=== PATIENT | female | born 1950 | race Caucasian/White ===

== ENCOUNTER → 2016-08-21 | Outpatient (CLI) | payer MEDICARE ==
[~2016-08-21] MED LIST: ARIM1TAB4 PO; LISI25TA PO; MONT10TA2 PO; OYSCTAB PO; SENN8.6C
--- NOTE | 2016-08-21 15:25 | REPMRS ---
Patient History The patient states she had a clinical breast exam in 12/05.Patient has history of breast cancer at age 55. Family history of unknown cancer in sister at age 67 and breast cancer in mother at age 80. Digital Mammo Screening Bilat: August 21, 2016 - Exam #: [id number] Bilateral CC and MLO view(s) were taken. Technologist: Mackenzie Peralta, Technologist Prior study comparison: August 19, 2015, bilateral digital mammo screening bilat performed at [facility]. August 18, 2014, bilateral digital mammo screening bilat performed at [facility]. August 12, 2013, bilateral digital mammo screening bilat performed at [facility]. FINDINGS: The breast tissue is heterogeneously dense. This may lower the sensitivity of mammography. There is a moderate amount of heterogeneously dense fibroglandular tissue which is fairly symmetric. There are stable post treatment changes in the left breast.There is no interval development of dominant mass, architectural distortion, or clustered microcalcification typical of malignancy. There has been no change in the appearance of the mammogram from the prior studies. ASSESSMENT: BI-RADS/ACR category 1 mammogram. Negative. Recommendation Routine screening mammogram of both breasts in 1 year (for women over age 40). This mammogram was interpreted with the aid of an FDA-approved computer-aided dectection system. Electronically Signed By: Mendez Stapleton MD 08/21/16 8908
== END ==
LOC: M RAD 14:51
PROVIDERS: ATTEND Nurse Practitioner Family
DX: R92.2 Inconclusive mammogram (principal); Z85.3 Personal history of malignant neoplasm of breast; Z80.3 Family history of malignant neoplasm of breast

== ENCOUNTER → 2016-12-11 | Outpatient (CLI) | payer MEDICARE ==
[~2016-12-11] MED LIST changes: +LISI2.5T76 PO; -LISI25TA PO
--- NOTE | 2016-12-11 13:03 | REP ---
Ultrasound of the soft tissues of the neck: The patient has supraclavicular thickness on the left. Ultrasonography in the area of the thickness in the left supraclavicular and infraclavicular areas are evaluated by ultrasound. No focal mass or fluid collection is identified in these areas. There is a lymph node measuring 2.7 x 6.0 x 3.7 mm at the mid level of the neck on the left. This lymph node is normal size. In the left lobe of the thyroid. There are multiple nodules, the largest measuring 11.3 mm. Comparison ultrasound of the neck on the right is performed. There is no nodule or mass. Within the right lobe of the thyroid multiple nodules are identified, the largest measuring 4 mm. Signed by Jameel Epps MD 12/11/2016 12:54 P
== END ==
LOC: M RAD 11:59
PROVIDERS: ATTEND Internal Medicine Medical Oncology
DX: C50.912 Malignant neoplasm of unspecified site of left female breast (principal)

== ENCOUNTER → 2017-01-10 | Outpatient (REF) | payer MEDICARE, BC | LOC: M LAB REF 12:28 | PROVIDERS: ATTEND Nurse Practitioner Adult Health | DX: L81.8 Other specified disorders of pigmentation (principal) ==

== ENCOUNTER → 2017-01-16 | Outpatient (REF) | payer MEDICARE, BC | LOC: M LAB REF 11:27 | PROVIDERS: ATTEND Internal Medicine Endocrinology, Diabetes & Metabolism | DX: E04.2 Nontoxic multinodular goiter (principal) ==

== ENCOUNTER → 2017-08-23 | Outpatient (CLI) | payer MEDICARE | LOC: M RAD 07:32 | DX: Z12.31 Encounter for screening mammogram for malignant neoplasm of breast (principal); R92.8 Other abnormal and inconclusive findings on diagnostic imaging of breast | CPT/HCPCS: 77067 ==

== ENCOUNTER → 2018-08-26 | Outpatient (CLI) | payer MEDICARE ==
[~2018-08-26] MED LIST changes: -ARIM1TAB4 PO; +ARIM1TAB5 PO
--- NOTE | 2018-08-26 10:07 | REPMRS ---
Patient History The patient states she had a clinical breast exam in November 2017.Family history of breast cancer at age 80 in mother, unknown cancer at age 67 in sister. Digital Mammo Screening Bilat: August 26, 2018 - Exam #: [id number] Bilateral CC and MLO view(s) were taken. Technologist: Mackenzie Peralta, Technologist Prior study comparison: August 23, 2017, bilateral digital mammo screening bilat performed at [facility]. August 21, 2016, bilateral digital mammo screening bilat performed at [facility]. August 19, 2015, bilateral digital mammo screening bilat performed at [facility]. FINDINGS: The breast tissue is heterogeneously dense. This may lower the sensitivity of mammography. There are stable post treatment changes in the left breast. There is a moderate amount of heterogeneously dense fibroglandular tissue which is fairly symmetric. There is no interval development of dominant mass, architectural distortion, or clustered microcalcification typical of malignancy. There has been no change in the appearance of the mammogram from the prior studies. 3-D tomosynthesis shows no additional findings. Assessment: BI-RADS/ACR category 2 mammogram. Benign Findings. Recommendation Routine screening mammogram of both breasts in 1 year (for women over age 40). This mammogram was interpreted with the aid of an FDA-approved computer-aided dectection system. Electronically Signed By: Mendez Stapleton MD 08/26/18 1007
== END ==
LOC: M RAD 09:34
PROVIDERS: ATTEND Nurse Practitioner Family
DX: Z12.31 Encounter for screening mammogram for malignant neoplasm of breast (principal)

== ENCOUNTER → 2018-10-07 | Outpatient (REF) | payer MEDICARE, BC | LOC: M SFHCPLAZ 19:32 | PROVIDERS: ATTEND Dermatology | DX: C44.612 Basal cell carcinoma of skin of right upper limb, including shoulder (principal); C44.629 Squamous cell carcinoma of skin of left upper limb, including shoulder; L57.0 Actinic keratosis ==

== ENCOUNTER → 2018-11-19 | Outpatient (REF) | payer MEDICARE, BC | LOC: M SFHCPLAZ 17:27 | PROVIDERS: ATTEND Dermatology | DX: C44.519 Basal cell carcinoma of skin of other part of trunk (principal); L82.1 Other seborrheic keratosis ==

== ENCOUNTER → 2019-09-02 | Outpatient (CLI) | payer MEDICARE ==
[~2019-09-02] MED LIST changes: +LOSA50TA88 PO; -MONT10TA2 PO; +MONT10TA4 PO; +ROSU20TA5 PO
--- NOTE | 2019-09-02 09:27 | REPMRS ---
Patient History The patient states she had a clinical breast exam in 09/2018. Patient has history of skin cancer at age 68, has history of cancer in the left breast at age 55, had previous chest radiation therapy at age 55, and has history of cancer in the left breast at age 54. Family history of breast cancer at age 80 in mother. Malignant lumpectomy of the left breast, 2005. Benign excisional biopsy of the right breast, 1999. No Hormone Replacement Therapy Digital Woman Screen Mammo: September 02, 2019 - Exam #: [id number] Bilateral CC and MLO view(s) were taken. Technologist: Rachelle Pritchett, Technologist Prior study comparison: August 26, 2018, bilateral digital mammo screening bilat, performed at [facility]. August 23, 2017, bilateral digital mammo screening bilat, performed at [facility]. FINDINGS: The breast tissue is heterogeneously dense. This may lower the sensitivity of mammography. Stable post-treatment changes are again noted in the left breast. There is a moderate amount of heterogeneously dense fibroglandular tissue which is fairly symmetric. There is no interval development of dominant mass, architectural distortion, or grouped microcalcification typical of malignancy. There has been no change in the appearance of the mammogram from the prior studies. 3-D tomosynthesis shows no additional findings. Assessment: BI-RADS/ACR category 2 mammogram. Benign Findings. Recommendation Routine screening mammogram of both breasts in 1 year (for women over age 40). This mammogram was interpreted with the aid of an FDA-approved computer-aided dectection system. Electronically Signed By: Mendez Stapleton MD 09/02/19 0927
== END ==
LOC: M WHC 07:48
PROVIDERS: ATTEND Nurse Practitioner Adult Health
DX: Z12.31 Encounter for screening mammogram for malignant neoplasm of breast (principal); Z80.3 Family history of malignant neoplasm of breast; Z85.828 Personal history of other malignant neoplasm of skin; Z92.3 Personal history of irradiation

== ENCOUNTER → 2020-01-30 | Outpatient (REF) | payer MEDICARE | LOC: M LAB REF 16:14 | PROVIDERS: ATTEND Nurse Practitioner Adult Health | DX: M10.9 Gout, unspecified (principal) ==

== ENCOUNTER → 2020-03-03 | Outpatient (REF) | payer MEDICARE ==
[2020-04-17 10:30] LABS: BLOOD UREA NITROGEN 26 MG/DL (7-18); CREATININE FOR GFR 0.86 MG/DL (0.55-1.30); GLOMERULAR FILTRATION RATE > 60.0 (>39)
== END ==
LOC: M PLALAB 06:35
PROVIDERS: ATTEND Orthopaedic Surgery
DX: M79.671 Pain in right foot (principal)

== ENCOUNTER → 2020-04-13 | Outpatient (CLI) | payer MEDICARE ==
[2020-04-13 15:34] LABS: BASO % 0.5 % (0.0-1.0); EOS # 0.1 10^3/uL (0.0-0.5); EOS % 1.1 % (0.0-3.0); HEMATOCRIT 48.5 % (36.0-47.0); HEMOGLOBIN 15.6 g/dl (12.0-15.5); LYMPH # 2.5 10^3/uL (1.5-5.0); LYMPH % 31.1 % (24.0-44.0); MEAN CORPUSCULAR HEMOGLOBIN 28.3 pg (27.0-33.0); MEAN CORPUSCULAR HGB CONC 32.2 g/dl (32.0-36.5); MONO # 0.7 10^3/uL (0.0-0.8); MONO % 8.4 % (0.0-5.0); NEUTROPHILS # 4.8 10^3/uL (1.5-8.5); NEUTROPHILS % 58.5 % (36.0-66.0); PLATELET COUNT, AUTOMATED 259 10^3/uL (150-450); RED BLOOD COUNT 5.51 10^6/uL (4.00-5.40); WHITE BLOOD COUNT 8.1 10^3/uL (4.0-10.0)
[2020-04-13 15:35] LABS: C REACTIVE PROTEIN QUANTITATIV < 0.30 MG/DL (0.00-0.30); RHEUMATOID FACTOR QUANT < 10.0 IU/ML (<15.0)
[2020-04-13 16:17] LABS: ERYTHROCYTE SEDIMENTATION RATE 2 mm/hr (0-30)
[2020-04-20 23:07] LABS: ANTINUCLEAR ANTIBODIES DIRECT Negative (Negative); HLA-B27 Negative (.)
== END ==
LOC: M PLALAB 13:55
PROVIDERS: ATTEND Orthopaedic Surgery
DX: R22.41 Localized swelling, mass and lump, right lower limb (principal)

== ENCOUNTER → 2020-08-25 | Outpatient (CLI) | payer MEDICARE, BC ==
[~2020-08-25] MED LIST changes: -MONT10TA4 PO; +MONT5TAB2 PO
[2020-08-25 11:38] LABS: BASO % 0.5 % (0.0-1.0); EOS # 0.1 10^3/uL (0.0-0.5); EOS % 1.3 % (0.0-3.0); HEMATOCRIT 47.2 % (36.0-47.0); HEMOGLOBIN 14.8 g/dl (12.0-15.5); LYMPH # 1.7 10^3/uL (1.5-5.0); LYMPH % 21.4 % (24.0-44.0); MEAN CORPUSCULAR HEMOGLOBIN 26.9 pg (27.0-33.0); MEAN CORPUSCULAR HGB CONC 31.4 g/dl (32.0-36.5); MEAN CORPUSCULAR VOLUME 85.8 fl (80.0-96.0); MONO # 0.6 10^3/uL (0.0-0.8); MONO % 8.3 % (0.0-5.0); NEUTROPHILS # 5.2 10^3/uL (1.5-8.5); PLATELET COUNT, AUTOMATED 353 10^3/uL (150-450); WHITE BLOOD COUNT 7.7 10^3/uL (4.0-10.0)
[2020-08-25 12:03] LABS: ALBUMIN 3.3 GM/DL (3.2-5.2); ALT/SGPT 42 U/L (12-78); BILIRUBIN,TOTAL 0.4 MG/DL (0.2-1.0); BLOOD UREA NITROGEN 19 MG/DL (7-18); CALCIUM LEVEL 8.9 MG/DL (8.8-10.2); CARBON DIOXIDE LEVEL 26 MEQ/L (21-32); CHLORIDE LEVEL 108 MEQ/L (98-107); GLOMERULAR FILTRATION RATE > 60.0 (>39); GLUCOSE, FASTING 103 MG/DL (70-100); POTASSIUM SERUM 4.2 MEQ/L (3.5-5.1); SODIUM LEVEL 142 MEQ/L (136-145); TOTAL PROTEIN 7.1 GM/DL (6.4-8.2)
== END ==
LOC: M WUC 08:47
PROVIDERS: ATTEND Physician Assistant
DX: A08.4 Viral intestinal infection, unspecified (principal); J01.90 Acute sinusitis, unspecified

== ENCOUNTER → 2020-10-11 | Outpatient (CLI) | payer MEDICARE ==
[~2020-10-11] MED LIST changes: +MONT10TA10 PO; -MONT5TAB2 PO
--- NOTE | 2020-10-11 14:29 | REPMRS ---
Patient History The patient states she had a clinical breast exam in 04/2020. Patient has history of other cancer at age 68, has history of cancer in the left breast at age 55, had previous chest radiation therapy at age 55, and has history of cancer in the left breast at age 54. Family history of breast cancer at age 80 in mother. Malignant lumpectomy of the left breast, 2005. Benign excisional biopsy of the right breast, 1999. No Hormone Replacement Therapy Digital Woman Screen Mammo: October 11, 2020 - Exam #: [id number] Bilateral CC and MLO view(s) were taken. Technologist: Rachelle Pritchett, Technologist Prior study comparison: September 02, 2019, bilateral digital woman screen mammo performed at [facility]. August 26, 2018, bilateral digital mammo screening bilat, performed at [facility]. August 23, 2017, bilateral digital mammo screening bilat, performed at [facility]. FINDINGS: The breast tissue is heterogeneously dense. This may lower the sensitivity of mammography. The Volpara volumetric breast density category is: C. There are stable post treatment changes in the left breast. There is a moderate amount of heterogeneously dense fibroglandular tissue which is fairly symmetric. There is no interval development of dominant mass, architectural distortion, or grouped microcalcification typical of malignancy. There has been no change in the appearance of the mammogram from the prior studies. 3-D tomosynthesis shows no additional findings. Assessment: BI-RADS/ACR category 2 mammogram. Benign Findings. Recommendation Routine screening mammogram of both breasts in 1 year (for women over age 40). This mammogram was interpreted with the aid of an FDA-approved computer-aided dectection system. Electronically Signed By: Mendez Stapleton MD 10/11/20 5537
== END ==
LOC: M WHC 13:17
PROVIDERS: ATTEND Nurse Practitioner Adult Health
DX: Z12.31 Encounter for screening mammogram for malignant neoplasm of breast (principal); Z85.3 Personal history of malignant neoplasm of breast

== ENCOUNTER → 2021-01-25 | Outpatient (CLI) | payer MEDICARE ==
--- NOTE | 2021-01-25 15:36 | REP ---
INDICATION: LEFT BREAST FULLNESS,HX OF INVASIVE BREAST CANCER; FULLNESS LEFT BREAST, HX OF INVASIVE BREAST CANCER. COMPARISON: Comparison mammography October 11 2020 and September 02, 2019. August 26, 2018 prior mammography is also reviewed. TECHNIQUE: Routine views of the left breast are augmented by 3D tomography, laterally exaggerated craniocaudal, and focal spot-compression mammographic images. A skin marker is affixed to the skin at the site of the palpable lump. Targeted left axillary ultrasound is performed. This mammogram was interpreted with the aid of an FDA-approved computer-aided detection system. FINDINGS: Stable post treatment changes are noted consisting of multiple surgical clips and mild contour deformity in the axillary region of the left breast. Patient is a personal history of breast carcinoma. There is a single benign-appearing lymph node visible near the skin marker on MLO and laterally exaggerated CC view. This lymph node measures 6 mm in greatest diameter. It is unchanged from the recent prior mammography. No other visible mass is seen. The breast tissue visualized in the region of the palpable marker on the skin is otherwise predominantly fat replaced. Breast parenchyma itself is heterogeneously dense. It is unchanged. The Volpara volumetric breast density pattern is C. Targeted ultrasound: Targeted left axillary sonography is performed. In the area the palpable lump in the left axilla there are 2 small normal appearing benign lymph nodes. These measure 0.6 x 0.7 x 0.4 cm and 0.8 x 0.6 x 0.4 cm respectively. IMPRESSION: BIRADS/ACR category 2 benign left breast mammographic and sonographic findings. Two lymph nodes visualized in the left axilla by ultrasound with benign features. One of these visible mammographically. No suspicious imaging abnormality. RECOMMENDATION: Clinical follow-up for the patient's palpable findings. Annual screening mammography can be continued.. The patient letter being requested is M2 dense. <Electronically signed by Mendez Stapleton > 01/25/21 [id number]
== END ==
LOC: M WHC 13:48
PROVIDERS: ATTEND Nurse Practitioner Adult Health
DX: N64.59 Other signs and symptoms in breast (principal); Z85.3 Personal history of malignant neoplasm of breast
CPT/HCPCS: 76642; 77065; G0279

== ENCOUNTER → 2021-05-18 | Outpatient (CLI) | payer MEDICARE, BC | LOC: M PLALAB 10:30 | PROVIDERS: ATTEND Surgery | DX: Z13.79 Encounter for other screening for genetic and chromosomal anomalies (principal) ==

== ENCOUNTER → 2021-06-01 | Outpatient (CLI) | payer MEDICARE ==
[2021-06-01 14:15] VITALS: BP 142/84
--- NOTE | 2021-06-04 09:15 | ROOPDOC ---
[facility] Report Of Operation Report of Operation DATE OF PROCEDURE: 06/01/21 DIAGNOSIS: left axillary mass PROCEDURE: ultrasound guided biopsy of the left axillary mass with clip placement SURGEON: Amena Campos BLOOD LOSS: minimal COMPLICATIONS: none Lidocaine 1% LOT [id number] Expiration 09/2024 Sodium Bicarbonate 8.4% LOT [id number] Expiration 08/2021 Hydromark clip LOT [id number] Expiration 10/2023 SHAPE: 4 Bx device: TEMNO 18G x 20 cm LOT [id number] Expiration 08/2024 Informed consent was obtained. The most common risk and possible complications including bleeding, hematoma, bruising, infection, injury to surrounding structures were explained to the patient and the patient expressed understanding. Patient was placed on the bed in the supine position. Appropriate time out was done stating patients name, date of , and the procedure to be performed. The left axilla was prepped and draped in the usual fashion. Palpation was used to identify the area of palpable mass in left axilla. At that location, the ultrasound showed previously identified hypoechoic mass at the left axilla, slightly inferior and medial to the axillary scar. Plain Lidocaine 1% and 8.4% sodium bicarbonate 10:1 mix was used to anesthetize the skin, the biopsy site and tissues along the anticipated biopsy tract. Small skin incision was made with blade number 11. Temno 18G cannula with introducer was inserted through the incision and advanced under the ultrasound guidance to position immediately adjacent to the suspicious hypoechoic mass. Next, the introducer was removed and Temno 18G biopsy device was places in the cannula. Pre-biopsy imaging, and post-biopsy imaging were captured. Five good core biopsies were taken at various levels of the lesion. Specimen was placed in formaldehyde, labeled with appropriate biopsy site and patients name, and sent to pathology for evaluation. Next, the biopsy device and cannula were withdrawn and a clip introducer was inserted into the position immediately adjacent to the biopsied axillary hypoechoic mass. The SHAPE 4 Hydromark clip was deployed under sonographic guidance. Post-clip placement image was captured. Manual pressure over the biopsy cavity and tract was held after the clip introducer was withdrawn. No bleeding was noted upon removal of the pressure. Left breast mammogram was done post biopsy and clip was seen in expected position only on MLO view. Postprocedural dressing was placed. Patient tolerated procedure well. Discharge instructions were discussed with the patient and the patient expressed understanding. AMENA CAMPOS DO Jun 04, 2021 09:15
== END ==
LOC: M WHCPRO 07:57
PROVIDERS: ATTEND Surgery
DX: C50.912 Malignant neoplasm of unspecified site of left female breast (principal); N63.32 Unspecified lump in axillary tail of the left breast; R22.32 Localized swelling, mass and lump, left upper limb

== ENCOUNTER → 2021-06-07 | Outpatient (CLI) | payer MEDICARE ==
[2021-06-07 16:04] LABS: BLOOD UREA NITROGEN 23 MG/DL (7-18); CALCIUM LEVEL 9.7 MG/DL (8.8-10.2); CARBON DIOXIDE LEVEL 30 MEQ/L (21-32); CHLORIDE LEVEL 107 MEQ/L (98-107); CREATININE FOR GFR 0.86 MG/DL (0.55-1.30); GLOMERULAR FILTRATION RATE > 60.0 (>39); GLUCOSE, FASTING 114 MG/DL (70-100); POTASSIUM SERUM 4.3 MEQ/L (3.5-5.1); SODIUM LEVEL 141 MEQ/L (136-145)
== END ==
LOC: M PLALAB 14:00
PROVIDERS: ATTEND Surgery
DX: C50.912 Malignant neoplasm of unspecified site of left female breast (principal)

== ENCOUNTER → 2021-06-20 | Outpatient (CLI) | payer MEDICARE ==
--- NOTE | 2021-06-21 09:48 | REP ---
INDICATION: RESTAGING BREAST CANCER. COMPARISON: None. TECHNIQUE: After the intravenous administration of 9.13 mCi of FDG 18 triplane whole-body PET-CT was performed from the skull base to the mid thigh. NONCONTRAST HELICAL CT IMAGING WAS PERFORMED OVER THE SAME RANGE WITHOUT BREATH HOLD FOR ATTENUATION CORRECTION OF PET IMAGES AND ANATOMIC CORRELATION, BUT NOT FOR PRIMARY INTERPRETATION IT IS NOT OF STANDARD DIAGNOSTIC QUALITY. FINDINGS: There is no abnormal hypermetabolic activity seen in the neck, chest, abdomen, or pelvis. There is no evidence of abnormal skeletal hypermetabolic activity. IMPRESSION: Negative PET-CT <Electronically signed by Rigoberto John > 06/21/21 0944
== END ==
LOC: M PLARAD 09:37
PROVIDERS: ATTEND Surgery
DX: C50.912 Malignant neoplasm of unspecified site of left female breast (principal); R22.32 Localized swelling, mass and lump, left upper limb; Z85.3 Personal history of malignant neoplasm of breast
CPT/HCPCS: 78815; A9552

== ENCOUNTER → 2021-06-24 | Outpatient (CLI) | payer MEDICARE ==
[~2021-06-24] MED LIST changes: +PROHANCE 279.3MG/ML 15ML VIAL As Ordered ONE
--- NOTE | 2021-06-24 17:13 | REP ---
INDICATION: INVASIVE DUCTAL CARCINOMA LT BREAST. COMPARISON: Mammography 01/25/2021, 10/11/2020, 09/02/2019. TECHNIQUE: Three Kacie MRI imaging was performed with a dedicated breast coil. Axial, coronal, and sagittal T1 and T2 weighted scans were obtained with and without fat saturation in the usual fashion. The study includes dynamically acquired post gadolinium-enhanced imaging with image subtraction. Maximum intensity projection and multi planar reformation imaging is included as well. This study is interpreted with the aid of LuminateD, an FDA approved computer aided detection (CAD) software program, on a dedicated breast MRI workstation. The gadolinium enhancement dose is 15 mL of intravenous ProHance. FINDINGS: Moderate diffuse heterogeneous fibroglandular tissue is present. There are multiple metallic surgical clips in the left axilla causing artifact in that region. No enlarged lymph nodes are seen in either axilla. No significant cystic change is seen in either breast. There is a subcentimeter intramammary lymph node in the lower outer right breast. There is mild to moderate background parenchymal enhancement symmetrically bilaterally. At the site of biopsy clip in the left axilla there is a focus of irregular, suspicious washout enhancement consistent with the recently biopsied carcinoma. This area measures approximately 7 x 12 x 7 mm. No other abnormality is seen on the left. On the right there is a band of nodular, suspicious ductal appearing washout enhancement. This extends for a length of approximately 2.6 cm in the AP dimension. Maximum craniocaudal extent is 9 mm and transverse 5 mm. This is located in the mid 3rd of the breast just below the level of the nipple. The anterior margin of this abnormality is approximately 3.5 cm from the nipple. IMPRESSION: BI-RADS category 6, known left breast cancer. The recently biopsied carcinoma is visualized adjacent to the deployed biopsy clip in the left axilla as discussed in detail above. There is a somewhat suspicious abnormality centrally and slightly inferiorly on the left, with a band of nodular ductal appearing suspicious enhancement. Recommend second-look ultrasound of that area to attempt to visualize for biopsy. <Electronically signed by Jameel Qiu > 06/24/21 9424
== END ==
LOC: M RAD 14:35
PROVIDERS: ATTEND Surgery
DX: C50.912 Malignant neoplasm of unspecified site of left female breast (principal)
CPT/HCPCS: A9576; C8908

== ENCOUNTER → 2021-07-11 | Outpatient (CLI) | payer MEDICARE ==
[~2021-07-11] MED LIST changes: +LOSA50TA28 PO; -LOSA50TA88 PO; -MONT10TA10 PO; +MONT10TA97 PO; -PROHANCE 279.3MG/ML 15ML VIAL As Ordered ONE; +ULTR50TA8 PO
== END ==
LOC: M RAD 07-07 09:05
PROVIDERS: ATTEND Surgery
DX: C50.912 Malignant neoplasm of unspecified site of left female breast (principal)

== ENCOUNTER → 2021-07-25 | Outpatient (CLI) | payer MEDICARE ==
[~2021-07-25] MED LIST changes: -LOSA50TA28 PO; +LOSA50TA88 PO; +MONT10TA10 PO; -MONT10TA97 PO; -ULTR50TA8 PO
[2021-07-25 11:39] LABS: BLOOD UREA NITROGEN 19 MG/DL (7-18); CALCIUM LEVEL 9.3 MG/DL (8.8-10.2); CARBON DIOXIDE LEVEL 28 MEQ/L (21-32); CHLORIDE LEVEL 109 MEQ/L (98-107); CREATININE FOR GFR 0.76 MG/DL (0.55-1.30); GLOMERULAR FILTRATION RATE > 60.0 (>39); GLUCOSE, FASTING 111 MG/DL (70-100); POTASSIUM SERUM 4.9 MEQ/L (3.5-5.1); SODIUM LEVEL 140 MEQ/L (136-145)
== END ==
LOC: M PLALAB 08:44
PROVIDERS: ATTEND Surgery
DX: R92.8 Other abnormal and inconclusive findings on diagnostic imaging of breast (principal)

== ENCOUNTER → 2021-07-28 | Outpatient (CLI) | payer MEDICARE | LOC: M WHC 11:37 | PROVIDERS: ATTEND Surgery | DX: R92.8 Other abnormal and inconclusive findings on diagnostic imaging of breast (principal) ==

== ENCOUNTER → 2021-08-04 | Outpatient (CLI) | payer MEDICARE ==
[~2021-08-04] MED LIST changes: +LOSA50TA28 PO; -LOSA50TA88 PO; -MONT10TA10 PO; +MONT10TA97 PO
== END ==
LOC: M PLAIMG 09:38
PROVIDERS: ATTEND Surgery
DX: Z01.818 Encounter for other preprocedural examination (principal)

== ENCOUNTER → 2021-08-04 | Outpatient (CLI) | payer MEDICARE | LOC: M LABSMTC 09:06 | PROVIDERS: ATTEND Anesthesiology | DX: Z01.812 Encounter for preprocedural laboratory examination (principal); Z20.822 Contact with and (suspected) exposure to COVID-19 ==

== ENCOUNTER 2021-08-09 08:24 | Observation (INO) | payer MEDICARE ==
[~2021-08-09] VITALS: Ht 165.1 cm; Wt 91.5 kg
[~2021-08-09 08:24] MED LIST changes: +HEPARIN SOD (PORCINE) 5000UNITS/ML 1ML VIAL/SYRINGE SQ ONE; +LIDOCAINE 1% MDV 20ML VIAL SQ PRN; +LR 1,000 ML IV ONE; +ceFAZolin SOD 2 GM in IV 1 EA IV ONE
[2021-08-09] MEDS ORDERED: propofoL 200 MG/20 ML VIAL As Ordered ONE (11:06)
[2021-08-09] MEDS ORDERED: LIDOCAINE 2% 100MG/5ML SDV (FOR ANES.) As Ordered ONE (11:07)
[2021-08-09] MEDS ORDERED: ROCURONIUM BROMIDE 50 MG/5 ML VIAL As Ordered ONE (11:07)
[2021-08-09] MEDS ORDERED: MIDAZOLAM INJ 2MG/2ML VIAL (J2250 PER 1MG) As Ordered ONE (11:09)
[2021-08-09] MEDS ORDERED: fentaNYL 100 MCG/2 ML INJECTION (J3010) As Ordered ONE (11:09)
[2021-08-09] MEDS ORDERED: BUPIVACAINE LIPOSOME/PF 1.3% 20ML VIAL (13.3MG/ML)(EXPAREL)(C9290 PER1MG) As Ordered ONE (12:19)
[2021-08-09] MEDS ORDERED: METHYLENE BLUE 0.5% (5MG/ML) 10 ML AMP (PROVAYBLUE) As Ordered ONE (12:19)
[2021-08-09] MEDS ORDERED: ePHEDrine SULFATE 25 MG/5 ML(5MG/ML) SYRINGE As Ordered ONE ×2 (13:38→15:51)
[2021-08-09] MEDS ORDERED: ACETAMINOPHEN 1000MG 100ML IV BTL (OFIRMEV) (J0131 PER 10MG) As Ordered ONE (13:40)
[2021-08-09] MEDS ORDERED: SUGAMMADEX SODIUM 500 MG/5 ML VIAL (BRIDION) As Ordered ONE (13:54)
[2021-08-09] MEDS ORDERED: dexameTHASONE 4 MG/ML 1ML VIAL (J1100 PER 1MG) As Ordered ONE (13:54)
[2021-08-09] MEDS ORDERED: GLYCOPYRROLATE INJ 0.2 MG/ML 2 ML VIAL As Ordered ONE (13:56)
[2021-08-09] MEDS ORDERED: HYDROmorphone HCL 2MG/ML 1ML VIAL As Ordered ONE (14:04)
[2021-08-09] MEDS ORDERED: ONDANSETRON 4MG/2ML VIAL As Ordered ONE (14:45)
[2021-08-09] MEDS ORDERED: ONDANSETRON 4MG/2ML VIAL IV PRN ×2 (17:00→17:10)
[2021-08-09] MEDS ORDERED: LR 1,000 ML IV SCH ×2 (17:00→17:10)
[2021-08-09] MEDS ORDERED: fentaNYL 100 MCG/2 ML INJECTION (J3010) IV PRN (17:00)
[2021-08-09] MEDS ORDERED: PERCOCET 5MG/325MG TAB PO PRN (17:00)
[2021-08-09] MEDS ORDERED: traMADol 50 MG TAB PO PRN (17:10)
[2021-08-09] MEDS ORDERED: MORPHINE 2 MG/ML 1ML VIAL (J2270) IV PRN (17:10)
[2021-08-09 18:00] VITALS: BP 142/74
[2021-08-09] MEDS ORDERED: LOSARTAN 50MG TABLET PO ONE (18:00)
[2021-08-09 18:30] VITALS: BP 138/74
[2021-08-09 18:42] LABS: HEMOGLOBIN 13.1 g/dl (12.0-15.5); MEAN CORPUSCULAR HEMOGLOBIN 28.5 pg (27.0-33.0); MEAN CORPUSCULAR HGB CONC 32.8 g/dl (32.0-36.5); PLATELET COUNT, AUTOMATED 223 10^3/uL (150-450); WHITE BLOOD COUNT 10.9 10^3/uL (4.0-10.0)
[2021-08-09 19:09] LABS: BLOOD UREA NITROGEN 17 MG/DL (7-18); CALCIUM LEVEL 8.5 MG/DL (8.8-10.2); CARBON DIOXIDE LEVEL 25 MEQ/L (21-32); CHLORIDE LEVEL 110 MEQ/L (98-107); CREATININE FOR GFR 0.76 MG/DL (0.55-1.30); GLOMERULAR FILTRATION RATE > 60.0 (>39); GLUCOSE, FASTING 163 MG/DL (70-100); MAGNESIUM LEVEL 1.8 MG/DL (1.8-2.4); PHOSPHORUS LEVEL 4.2 MG/DL (2.5-4.9); POTASSIUM SERUM 4.2 MEQ/L (3.5-5.1); SODIUM LEVEL 141 MEQ/L (136-145)
[2021-08-09 20:30] VITALS: BP 141/72
[2021-08-09 21:00] VITALS: BP 159/76; O2SAT 96
[2021-08-09] MEDS ORDERED: ROSUVASTATIN 10 MG TAB (CRESTOR) PO SCH (21:00)
[2021-08-09] MEDS: HEPARIN SOD (PORCINE) 5000UNITS/ML 1ML VIAL/SYRINGE SQ SCH (21:08)
[2021-08-09] MEDS: CLINDAMYCIN 900 MG in IV 1 EA IV SCH (21:09)
[2021-08-09 22:15] VITALS: BP 156/74
[2021-08-10 00:30] VITALS: BP 154/84
[2021-08-10 02:00] VITALS: BP 145/74
[2021-08-10] MEDS: ACETAMINOPHEN TAB 650MG DOSE (2X325MG) PO PRN ×3 (02:18→13:37)
[2021-08-10] MEDS: CLINDAMYCIN 900 MG in IV 1 EA IV SCH (05:18)
[2021-08-10] MEDS: HEPARIN SOD (PORCINE) 5000UNITS/ML 1ML VIAL/SYRINGE SQ SCH (05:18)
[2021-08-10 06:00] VITALS: O2SAT 96
[2021-08-10 06:51] LABS: HEMATOCRIT 37.7 % (36.0-47.0); HEMOGLOBIN 12.3 g/dl (12.0-15.5); MEAN CORPUSCULAR HEMOGLOBIN 28.7 pg (27.0-33.0); MEAN CORPUSCULAR HGB CONC 32.6 g/dl (32.0-36.5); MEAN CORPUSCULAR VOLUME 87.9 fl (80.0-96.0); PLATELET COUNT, AUTOMATED 229 10^3/uL (150-450); RED BLOOD COUNT 4.29 10^6/uL (4.00-5.40); WHITE BLOOD COUNT 12.4 10^3/uL (4.0-10.0)
[2021-08-10 07:12] LABS: BLOOD UREA NITROGEN 12 MG/DL (7-18); CALCIUM LEVEL 8.5 MG/DL (8.8-10.2); CARBON DIOXIDE LEVEL 28 MEQ/L (21-32); CHLORIDE LEVEL 108 MEQ/L (98-107); CREATININE FOR GFR 0.86 MG/DL (0.55-1.30); GLOMERULAR FILTRATION RATE > 60.0 (>39); GLUCOSE, FASTING 130 MG/DL (70-100); MAGNESIUM LEVEL 1.9 MG/DL (1.8-2.4); PHOSPHORUS LEVEL 3.6 MG/DL (2.5-4.9); POTASSIUM SERUM 4.2 MEQ/L (3.5-5.1); SODIUM LEVEL 140 MEQ/L (136-145)
[2021-08-10] MEDS ORDERED: LOSARTAN 50MG TABLET PO SCH (09:00)
[2021-08-10] MEDS ORDERED: ULTR50TA8 PO (09:32)
[2021-08-10 10:00] VITALS: BP 133/66
[2021-08-10 10:55] VITALS: BP 133/66
[2021-08-10 14:00] VITALS: BP 138/67
== END 2021-08-10 14:50 | disposition home or self-care (01) ==
LOC: M SDC 08:24 → M MS5PR 08:25
PROVIDERS: ADMIT Surgery; ATTEND Surgery
DX: D05.11 Intraductal carcinoma in situ of right breast (principal); D05.12 Intraductal carcinoma in situ of left breast; I10 Essential (primary) hypertension; E78.5 Hyperlipidemia, unspecified; Z92.3 Personal history of irradiation; L57.0 Actinic keratosis; Z85.828 Personal history of other malignant neoplasm of skin; Z79.899 Other long term (current) drug therapy
CPT/HCPCS: 19303; 36415; 38525; 64450; 78195; 80048; 83735; 84100; 85027; 86850; 86900; 86901; 88307; 88309; 96361; 96365; 96366; 96372; 96375; C9290; G0378; J0131; J0690; J1100; J1170; J1644; J2250; J2270; J2405; J3010; Q9968

== ENCOUNTER → 2021-08-29 | Outpatient (CLI) | payer MEDICARE ==
[~2021-08-29] MED LIST changes: -HEPARIN SOD (PORCINE) 5000UNITS/ML 1ML VIAL/SYRINGE SQ ONE; -LIDOCAINE 1% MDV 20ML VIAL SQ PRN; -LR 1,000 ML IV ONE; +ULTR50TA8 PO; -ceFAZolin SOD 2 GM in IV 1 EA IV ONE
== END ==
LOC: M WHC 10:10
PROVIDERS: ATTEND Specialist
DX: C50.919 Malignant neoplasm of unspecified site of unspecified female breast (principal); M85.89 Other specified disorders of bone density and structure, multiple sites

== ENCOUNTER → 2022-06-25 | Outpatient (CLI) | payer MEDICARE ==
[~2022-06-25] MED LIST changes: +ACET1TAB55 PO; +IBUP-1114 PO; +LETR2.5T2 PO; +VITAD400CA PO
== END ==
LOC: M LABSMTC 09:49
PROVIDERS: ATTEND Anesthesiology
DX: Z01.812 Encounter for preprocedural laboratory examination (principal); Z11.52 Encounter for screening for COVID-19

== ENCOUNTER 2022-06-29 07:38 | Day surgery (SDC) | payer MEDICARE ==
[~2022-06-29] VITALS: Ht 165.1 cm; Wt 76.1 kg
[~2022-06-29 07:38] MED LIST changes: +NS 1,000 ML IV ONE
[2022-06-29] MEDS ORDERED: propofoL 200 MG/20 ML VIAL As Ordered ONE (08:37)
[2022-06-29 09:15] VITALS: BP 140/64
== END 2022-06-29 09:15 | disposition home or self-care (01) ==
LOC: M OPP 07:38
PROVIDERS: ATTEND Surgery
DX: Z12.11 Encounter for screening for malignant neoplasm of colon (principal); Z85.3 Personal history of malignant neoplasm of breast; Z92.3 Personal history of irradiation; I10 Essential (primary) hypertension; E78.00 Pure hypercholesterolemia, unspecified; Z79.1 Long term (current) use of non-steroidal anti-inflammatories (NSAID); Z79.02 Long term (current) use of antithrombotics/antiplatelets; Z79.899 Other long term (current) drug therapy

== ENCOUNTER → 2023-08-31 | Outpatient (CLI) | payer MEDICARE ==
[~2023-08-31] MED LIST changes: -NS 1,000 ML IV ONE; -ROSU20TA5 PO; +ROSU20TA61 PO
== END ==
LOC: M WHC 12:28
PROVIDERS: ATTEND Specialist
DX: C50.919 Malignant neoplasm of unspecified site of unspecified female breast (principal); Z79.811 Long term (current) use of aromatase inhibitors; M85.851 Other specified disorders of bone density and structure, right thigh